=== PATIENT | female | born 1990 | race Caucasian/White ===

== ENCOUNTER 2020-06-10 22:02 | Inpatient (IN) | payer OTHER, MEDICAID, SELFPAY ==
[~2020-06-10] VITALS: Ht 154.9 cm; Wt 73.0 kg
[~2020-06-10 22:02] MED LIST: ORE25 PO
[2020-06-10 22:08] VITALS: BP 105/71
--- NOTE | 2020-06-10 22:10 | NUR ---
PT AMBULATED TO RESTROOM WITH STEADY GAIT TO PROVIDE UA.
--- NOTE | 2020-06-10 22:13 | NUR ---
PT AMBUALTED TO BED 6 WITH STEADY GAIT.
--- NOTE | 2020-06-10 22:19 | NUR ---
PATIENT PRESENTS TO ED WITH C/O GENERAL WEAKNESS X 4 DAYS . PT STATES [place] [facility] [place] 7.2 AND RECEIVED TRANSFUSION. CONTINUES WITH C/O GW DENIES N/V/D; SKIN IS PINK/WARM/DRY; AAOX4 WITH EVEN AND STEADY GAIT; LUNGS CLEAR BL; HR EVEN AND REGULAR; PT DENIES ANY FEVER, CP, SOB, OR COUGH AT THIS TIME; PATIENT STATES PAIN OF 0/10 AT THIS TIME; VSS; PATIENT POSITIONED FOR COMFORT; HOB ELEVATED; BEDRAILS UP X2; BED DOWN. ER MD MADE AWARE OF PT STATUS.
--- NOTE | 2020-06-10 22:19 | NUR ---
DR. JENKINS AT BEDSIDE FOR EXAM. PT UNABLE TO PROVIDE UA AT THIS TIME
--- NOTE | 2020-06-10 22:20 | NUR ---
ERMD AT BEDSIDE EVALUATING PT.
[2020-06-10] MEDS ORDERED: NACL 0.9% 1,000 ML IV ONE (22:30)
--- NOTE | 2020-06-10 22:36 | NUR ---
XRAY AT BEDSIDE
[2020-06-10 22:56] LABS: BASOPHILS # (AUTO) 0.1 K/uL (0.00-0.22); BASOPHILS % (AUTO) 0.9 % (0.0-2.0); EOSINOPHILS # (AUTO) 0.2 K/uL (0-0.4); EOSINOPHILS % (AUTO) 1.4 % (0.0-4.0); HEMATOCRIT 23.3 % (36-48); HEMOGLOBIN 7.8 g/dL (12.0-16.0); LYMPHOCYTES # (AUTO) 1.4 K/uL (2.5-16.5); MEAN CORPUSCULAR HEMOGLOBIN 32 pg (27-31); MEAN CORPUSCULAR HGB CONC 33 g/dL (33-37); MEAN CORPUSCULAR VOLUME 94.9 fL (80-94); MONOCYTES # (AUTO) 0.6 K/uL (0.8-1.0); MONOCYTES % (AUTO) 4.9 % (1.7-9.3); NEUTROPHILS # (AUTO) 9.6 K/uL (1.8-7.7); NEUTROPHILS % (AUTO) 80.8 % (42.2-75.2); PLATELET COUNT (AUTO) 339 K/uL (140-450); RED BLOOD CELL COUNT(AUTO) 2.46 MIL/uL (4.20-5.40); RED CELL DISTRIBUTION WIDTH 15.1 % (11.6-13.7); WHITE BLOOD COUNT (AUTO) 11.9 K/uL (4.8-10.8)
[2020-06-10 23:12] LABS: ALBUMIN 3.7 g/dL (3.4-5.0); ANION GAP 17.7 (8-16); TOTAL BILIRUBIN 0.4 mg/dL (0.0-1.0)
[2020-06-10 23:30] LABS: CREATININE 23.8 mg/dL (0.6-1.3); PROTHROMBIN TIME 9.9 secs (10.8-13.4)
--- NOTE | 2020-06-10 23:30 | NUR ---
PT REFUSES NASAL SWABS FOR COVID AND MRSA, REQUESTING TO LEAVE AMA
[2020-06-10 23:31] LABS: POTASSIUM 5.7 mmol/L (3.5-5.1)
--- NOTE | 2020-06-10 23:40 | NUR ---
DR. JENKINS AT BEDSIDE TO DISCUSS PTS REFUSAL. PT AGREES NOW TO COVID SWAB, REFUSES MRSA SWAB
[2020-06-11] MEDS ORDERED: LOSA25TA1 PO (00:50)
[2020-06-11] MEDS ORDERED: K PH1TAB PO (00:50)
[2020-06-11] MEDS ORDERED: MEDR2.5T PO (00:50)
[2020-06-11] MEDS ORDERED: CALC0.5S6 PO (00:50)
[2020-06-11] MEDS ORDERED: FERR1TAB42 PO (00:50)
[2020-06-11] MEDS ORDERED: SEN30 PO (00:50)
[2020-06-11] MEDS ORDERED: AMLO10TA89 PO (00:50)
--- NOTE | 2020-06-11 01:50 | NUR ---
ADMIT ORDERS REC'D FROM DR. MURCIA
--- NOTE | 2020-06-11 03:29 | NUR ---
RESTING COMFORTABLY WITH EYES OPEN IN NAD. PT IS TO BE ADMITTED. CM = SR WITHOUT ECTOPY. DENIES PAIN OR DISCOMFORT
--- NOTE | 2020-06-11 03:37 | NUR ---
REPORT TO KIM CASON
--- NOTE | 2020-06-11 03:40 | NUR ---
TRANSFERED TO [facility]A VIA JOSHUA, ACCOMPANIED BY RN AND ERT, ATTACHED TO CM
[2020-06-11 04:11] VITALS: BP 123/88
--- NOTE | 2020-06-11 04:11 | NUR ---
RECEIVED PT AAOX4 FROM JENNY Cuevas/ JOSHUA . IV SITE INTACT AND PATENT - SL . AMBULATES TO BED - STEADY GAIT . ADMISSION ASSESSMENT - DONE . ON TELE MONITOR - SR . DENIES ANY PAIN . PT . W/ PERITONEAL DIALYSIS - SHE SAID SHE DOIND PERITONEAL DIALYSIS AT HOME ON DAILY BASIS . PLAN OF CARE DISCUSSED AND VERBALIZE UNDERSTANDING . SAFETY MEASURES IN PLACE - GERALD;L LIGHT WITHIN REACH . FOR URINE COLLECTION . PT SAID SHE STILL MAKE HER OWN URINE . WILL CONT. TO MONITOR Addendum: 06/11/20 at 2041 by Deysi Messer RN THE WORD PT. W/ PERITONEAL DIALYSIS IN ABOVE NURSE'S NOTE IS AN ERROR ENTRY , INSTEAD OF PT HAS PERITONEAL DIALYSIS ACCESS - SANTO
--- NOTE | 2020-06-11 04:37 | NUR ---
REFUSED MRSA - I EXPLAIN TO HER THE MRSA IS DIFFERENT TO COVID RAPID TEST WHICH DONE WHILE AGO IN THE ER - BUT THE PT. STILL REFUSED . SHE SAID LONG HER COVID TEST IS NEGATIVE - SHE DON'T LIKE ANY PROCEDURE NASALLY .
--- NOTE | 2020-06-11 06:00 | NUR ---
UPDATING DR Bhumika MURCIA PT 'S HAS HIGH SERUM K = , AND THE PT HAS BLOOD ANTIBODIES FOUND - FOR FURTHER ANTIBODIES SCREENING . Addendum: 06/11/20 at 0853 by Deysi Messer RN DR. HUANG BACK - NO FURTHER ORDERS MADE .
--- NOTE | 2020-06-11 07:30 | NUR ---
RECEIVED PT FROM AMUSEMENT PARK ENTERTAINER NURSE, PT IS RESTING IN BED, IV NOTED TO LAC 18G SALINE LOCK, ON ROOM AIR, CONTINENT, TELE MONITOR ON, SAFETY AND FALL PRECAUTIONS IN PLACE, WILL CONTINUE TO MONITOR.
--- NOTE | 2020-06-11 07:43 | NUR ---
ENDORSED TO AM SHIFT - PT - STABLE .
--- NOTE | 2020-06-11 07:43 | NUR ---
PATIENT HAS BEEN SCREENED AND CATEGORIZED MODERATE NUTRITION RISK. PATIENT WILL BE SEEN WITHIN 3-5 DAYS OF ADMISSION. 06/13/20 06/15/[address]
[2020-06-11] MEDS ORDERED: DOCUSATE SODIUM 100 MG GELCAP PO PRN (07:55)
[2020-06-11] MEDS ORDERED: ONDANSETRON 4 MG/2 ML VIAL IM/IVP PRN (07:55)
[2020-06-11] MEDS ORDERED: ZOLPIDEM 5 MG TAB PO PRN (07:55)
[2020-06-11] MEDS ORDERED: guaiFENesin DM 200/20 MG-10 ML 10 ML UDC PO PRN (07:55)
[2020-06-11] MEDS ORDERED: POTASSIUM CHLORIDE 10 MEQ TABER PO PRN (07:55)
[2020-06-11] MEDS ORDERED: HYDROcodone/APAP 7.5/325 MG 1 TAB PO PRN (07:55)
[2020-06-11] MEDS ORDERED: ACETAMINOPHEN 325 MG TAB PO PRN (07:55)
[2020-06-11 08:00] VITALS: BP 117/71
--- NOTE | 2020-06-11 08:40 | NUR ---
DR. MURCIA CAME TO PT'S ROOM AND SPOKE TO PT REGARDING THE POC AND PT VERBALIZED UNDERSTANDING.
[2020-06-11] MEDS ORDERED: FUROSEMIDE 100 MG/10 ML VIAL IVP SCH (09:15)
[2020-06-11] MEDS ORDERED: SODIUM ZIRCONIUM CYCLOSILICATE 10 GM POWD.PACK PO SCH (09:15)
[2020-06-11 09:34] LABS: APPEARANCE,URINE HAZY (CLEAR); BILIRUBIN,URINE NEGATIVE (NEGATIVE); BLOOD, URINE 3+ (NEGATIVE); COLOR,URINE YELLOW (YELLOW); LEUKOCYTE ESTERASE ,URINE 2+ (NEGATIVE); NITRITE, URINE NEGATIVE (NEGATIVE); UGLUCOSE TRACE (NEGATIVE)
[2020-06-11] MEDS: amLODIPine 5 MG TAB PO SCH (09:53)
[2020-06-11] MEDS: PANTOPRAZOLE 40 MG TABEC PO SCH (09:54)
--- NOTE | 2020-06-11 09:55 | NUR ---
SCHEDULED MEDICATIONS ADMINISTERED PER PROTOCOL, BP117/77, HR 98, RR 14, O2 100%, PT DENIES PAIN, PT TOLERATED MEDICATION WELL, EDUCATION PROVIDED, PT VERBALIZED UNDERSTANDING, WILL CONTINUE TO MONITOR.
[2020-06-11 10:06] LABS: BARBITURATE, URINE NEGATIVE ng/ml (NEG <=200); BENZODIAZEPINE, URINE NEGATIVE ng/mL (NEG <=200); CANNABINOID, URINE NEGATIVE ng/mL (NEG <=50); COCAINE, URINE NEGATIVE ng/mL (NEG <=300); OPIATE, URINE NEGATIVE ng/mL (NEG <=2000); PHENCYCLIDINE SCREEN,URINE NEGATIVE ng/mL (NEG <=25)
[2020-06-11 10:28] LABS: CHOL/HDL RATIO 3.8 (1-4.5); FREE T4 (FREE THYROXINE) 0.89 ng/dL (0.76-1.46); MAGNESIUM 3.2 mg/dL (1.8-2.4); THYROID STIMULATING HORMONE 3.75 uIU/mL (0.34-3.74)
[2020-06-11 10:57] LABS: PHOSPHORUS 9.4 mg/dL (2.5-4.9)
--- NOTE | 2020-06-11 11:02 | NUR ---
LAB CALLED TO NOTIFY OF 9.7 PROSPEROUS LAB VALUE, DR. MURCIA WAS NOTIFIED, WILL CONTINUE TO MONITOR
[2020-06-11] MEDS ORDERED: EPOETIN ALFA 10,000 UNITS/ML VIAL SUBQ SCH (11:18)
[2020-06-11] MEDS: SEVELAMER CARBONATE 800 MG TAB PO SCH ×2 (11:56→18:16)
--- NOTE | 2020-06-11 11:57 | NUR ---
PT WAS GIVEN THE SCHEDULED MEDICATIONS VIA SUBQ ON THE RT UA, AND ORALLY, PT TOLERATED AND WILL MONITOR PT.
--- NOTE | 2020-06-11 13:20 | NUR ---
RECEIVED REPORT FROM MOHAN FOR CONTINUITY OF CARE, PT IS STABLE, INTRODUCE SELF, WILL CONTINUE TO MONITOR.
--- NOTE | 2020-06-11 13:20 | NUR ---
ENDORSED PT TO RN DE, FOR CONTINUITY OF CARE, PT IS AWAKE AND STABLE AT THIS TIME.
--- NOTE | 2020-06-11 15:00 | NUR ---
PT ASLEEP IN BED, NO SIGNS OF DISTRESS NOTED, CALL LIGHT WITHIN REACH, WILL CONTINUE TO MONITOR.
[2020-06-11 16:00] VITALS: BP 110/59
--- NOTE | 2020-06-11 17:58 | NUR ---
CALLED LAB REGARDING PT BLOOD TRANSFUSION, BLOOD NOT READY LAB IS AWAITING THE RED CROSS TO SEND THE BLOOD BACK THE PT IS POSITIVE FOR ANTIBODIES. WILL ENDORSE TO NIGHT NURSE
--- NOTE | 2020-06-11 18:16 | NUR ---
ADMINISTERED SCHEDULED MEDICATION, MEDICATION EDUCATION PROVIDED, PT VERBALIZED UNDERSTANDING, PT TOLERATED WELL, PT IS STABLE, NO SIGNS OF DISTRESS NOTED, WILL CONTINUE TO MONITOR.
--- NOTE | 2020-06-11 19:10 | NUR ---
ENDORSE PT TO NIGHT NURSE FOR CONTINUITY OF CARE, PT IS STABLE
--- NOTE | 2020-06-11 19:50 | NUR ---
DIALYSIS NURSE CARY RN AT BEDSIDE.
[2020-06-11 20:00] VITALS: BP 112/64
--- NOTE | 2020-06-11 20:00 | NUR ---
RECEIVED REPORT FROM DAY SHIFT RN. A&O X4. SR/ST. S1S2 NOTED. PT HAS PERIPHERAL IV TO LT AC 18g PATENT NO INFILTRATION/PHLEBITIS NOTED, SALINE LOCK. LUNGS CLEAR UPON AUSCULTATION. BS ACTIVE IN ALL 4 QUADRANTS. PERITONEAL ACCESS SITE TO LEFT LOWER QUADRANT, NO REDNESS OR EDEMA NOTED. SKIN WARM, DRY AND INTACT. SAFETY MEASURES IN PLACE, BED LOW AND LOCKED, SIDE RAILS UP, CALL LIGHT WITHIN REACH. WILL CONTINUE TO MONITOR.
--- NOTE | 2020-06-11 22:00 | NUR ---
NO S/S OF DISTRESS NOTED, PT IS RESTING IN BED, WILL CONTINUE TO MONITOR. CALL LIGHT IS WITHIN REACH. SAFETY MEASURES IN PLACE.
--- NOTE | 2020-06-12 | NUR ---
PT IS SLEEPING, PT IS STABLE WITH NO APPARENT DISTRESS NOTED. WILL CONTINUE TO MONITOR.
--- NOTE | 2020-06-12 02:00 | NUR ---
PT IS RESTING IN BED, PT STATES NO PAIN OR DISCOMFORT AT THIS TIME, WILL CONTINUE TO MONITOR.
[2020-06-12 04:00] VITALS: BP 126/79
--- NOTE | 2020-06-12 04:00 | NUR ---
PT IS SLEEPING, NO S/S OF DISTRESS NOTED. WILL CONTINUE TO MONITOR. CALL LIGHT IS WITHIN REACH. SAFETY MEASURES IN PLACE.
--- NOTE | 2020-06-12 06:00 | NUR ---
PT IS SLEEPING, PT IS STABLE WITH NO APPARENT S/S OF DISTRESS NOTED. SAFETY MEASURES IN PLACE, BED LOW AND LOCKED, HOB AT 30 DEGREES, CALL LIGHT WITHIN REACH. WILL CONTINUE TO MONITOR
[2020-06-12 06:36] LABS: BASOPHILS # (AUTO) 0.1 K/uL (0.00-0.22); BASOPHILS % (AUTO) 1.2 % (0.0-2.0); EOSINOPHILS # (AUTO) 0.3 K/uL (0-0.4); EOSINOPHILS % (AUTO) 2.9 % (0.0-4.0); HEMATOCRIT 22.9 % (36-48); HEMOGLOBIN 7.5 g/dL (12.0-16.0); LYMPHOCYTES # (AUTO) 1.8 K/uL (2.5-16.5); LYMPHOCYTES % (AUTO) 19.4 % (20.5-51.1); MEAN CORPUSCULAR HEMOGLOBIN 31 pg (27-31); MEAN CORPUSCULAR HGB CONC 33 g/dL (33-37); MEAN CORPUSCULAR VOLUME 95.7 fL (80-94); MONOCYTES # (AUTO) 0.5 K/uL (0.8-1.0); MONOCYTES % (AUTO) 5.7 % (1.7-9.3); NEUTROPHILS # (AUTO) 6.4 K/uL (1.8-7.7); NEUTROPHILS % (AUTO) 70.8 % (42.2-75.2); PLATELET COUNT (AUTO) 315 K/uL (140-450); RED BLOOD CELL COUNT(AUTO) 2.39 MIL/uL (4.20-5.40); RED CELL DISTRIBUTION WIDTH 15.1 % (11.6-13.7); WHITE BLOOD COUNT (AUTO) 9.1 K/uL (4.8-10.8)
[2020-06-12 06:51] LABS: ANION GAP 20.9 (8-16); POTASSIUM 4.9 mmol/L (3.5-5.1)
[2020-06-12 06:54] LABS: CREATININE 24.2 mg/dL (0.6-1.3)
--- NOTE | 2020-06-12 07:10 | NUR ---
RECEIVED REPORT FROM CUSTOMER SUPPORT ASSOCIATE RN FOR CONTINUITY OF CARE. A&O X4. PT HAS PERIPHERAL IV TO LT AC 18g PATENT NO INFILTRATION/PHLEBITIS NOTED, SALINE LOCK. LUNGS CLEAR UPON AUSCULTATION. BS ACTIVE IN ALL 4 QUADRANTS. PERITONEAL ACCESS SITE TO LEFT LOWER QUADRANT, NO REDNESS OR EDEMA NOTED. SKIN WARM, DRY AND INTACT. SAFETY MEASURES IN PLACE, BED LOW POSITION, SIDE RAILS UP, CALL LIGHT WITHIN REACH. WILL CONTINUE TO MONITOR.
[2020-06-12] MEDS: PANTOPRAZOLE 40 MG TABEC PO SCH (08:09)
[2020-06-12] MEDS: SEVELAMER CARBONATE 800 MG TAB PO SCH ×3 (08:09→17:05)
[2020-06-12] MEDS: amLODIPine 5 MG TAB PO SCH (08:09)
--- NOTE | 2020-06-12 08:10 | NUR ---
SCHEDULED MORNING MEDICATION GIVEN, EDUCATION PROVIDED. PATIENT TOLERATED WELL AND VERBALIZED UNDERSTANDING. NO ACUTE DISTRESS NOTED. SAFETY MEASURES IN PLACE, CALL LIGHT WITHIN REACH. WILL CONTINUE TO MONITOR.
--- NOTE | 2020-06-12 11:21 | NUR ---
RBC PICKED UP FROM THE BLOOD BANK.
--- NOTE | 2020-06-12 11:32 | NUR ---
STARTED BLOOD TRANSFUSION. EDUCATION PROVIDED. INSTRUCTED PATIENT TO INFORM NURSE IF HAVE ANY ABNORMAL FINDINGS. WILL CLOSELY TO MONITOR.
--- NOTE | 2020-06-12 11:45 | NUR ---
PATIENT TALKING TO HER FAMILY OVER THE PHONE, NO REACTION NOTED SO FAR. WILL CLOSELY TO MONITOR.
--- NOTE | 2020-06-12 12:13 | NUR ---
SCHEDULED MEDICATION GIVEN. EDUCATION PROVIDED. NO REACTION TO BLOOD TRANSFUSION. PATIENT TOLERATED WELL. SAFETY MEASURES IN PLACE, WILL CONTINUE TO CLOSELY TO MONITOR.
--- NOTE | 2020-06-12 14:05 | NUR ---
FINISHED BLOOD TRANSFUSION. NO REACTION NOTED. V/S CHECKED. PATIENT DENIES DISCOMFORT. WILL CONTINUE TO MONITOR.
[2020-06-12 16:00] VITALS: BP 12/70
--- NOTE | 2020-06-12 17:05 | NUR ---
SCHEDULED MEDICATION GIVEN. PATIENT DENIES PAIN OR DISCOMFORT. TALKING WITH FRIEND OVER THE PHONE. SAFETY MEASURES IN PLACE, WILL CONTINUE TO MONITOR.
--- NOTE | 2020-06-12 18:35 | NUR ---
PATIENT DENIES PAIN OR DISCOMFORT, SAFETY MEASURES IN PLACE. WILL CONTINUE TO MONITOR.
--- NOTE | 2020-06-12 19:25 | NUR ---
RECEIVED REPORT FROM DAYSHIFT NURSE AT PATIENTS BEDSIDE. PT AWAKE AND ALERT, LYING DOWN IN BED. ON ROOM AIR, DENIES PAIN/WEAKNESS/DIZZINESS AT THIS TIME. REPORTS HAVING SOME SPOTTING, MENSTRUAL CYCLE IS VERY LIGHT. RIGHT ABDOMINAL LOWER QUADRANT HAS PERITONEAL DIALYSIS ACCESS, DRESSING DRY AND INTACT. LAC AC 18G, FLUSHED AND PATENT, SALINE LOCKED. PT ORIENTED TO TREATMENT PLAN, ALL QUESTIONS ANSWERED, PT AMBULATES TO RESTROOM FREQUENTLY. BED LOCKED AND IN LOWEST POSITION, SIDE RAILS UP x2, CALL LIGHT WITHIN REACH.
--- NOTE | 2020-06-12 19:32 | NUR ---
ENDORSED PATIENT TO PRINTING AND STAMPING SUPERVISOR RN EZEQUIEL FOR CONTINUITY OF CARE. PATIENT IN STABLE CONDITION.
--- NOTE | 2020-06-12 20:10 | NUR ---
PT STARTED ON PERITONEAL DIALYSIS. NO COMPLAINTS AT THIS TIME.
[2020-06-12 21:40] LABS: BASOPHILS # (AUTO) 0.1 K/uL (0.00-0.22); BASOPHILS % (AUTO) 0.7 % (0.0-2.0); EOSINOPHILS # (AUTO) 0.2 K/uL (0-0.4); EOSINOPHILS % (AUTO) 1.8 % (0.0-4.0); HEMATOCRIT 25.7 % (36-48); HEMOGLOBIN 8.6 g/dL (12.0-16.0); LYMPHOCYTES # (AUTO) 1.6 K/uL (2.5-16.5); LYMPHOCYTES % (AUTO) 14.4 % (20.5-51.1); MEAN CORPUSCULAR HEMOGLOBIN 31 pg (27-31); MEAN CORPUSCULAR HGB CONC 33 g/dL (33-37); MEAN CORPUSCULAR VOLUME 93.8 fL (80-94); MONOCYTES # (AUTO) 0.5 K/uL (0.8-1.0); MONOCYTES % (AUTO) 4.2 % (1.7-9.3); NEUTROPHILS # (AUTO) 8.9 K/uL (1.8-7.7); NEUTROPHILS % (AUTO) 78.9 % (42.2-75.2); PLATELET COUNT (AUTO) 301 K/uL (140-450); RED BLOOD CELL COUNT(AUTO) 2.74 MIL/uL (4.20-5.40); RED CELL DISTRIBUTION WIDTH 14.9 % (11.6-13.7); WHITE BLOOD COUNT (AUTO) 11.3 K/uL (4.8-10.8)
--- NOTE | 2020-06-12 22:20 | NUR ---
PT ABLE TO SELF TURN. NO DISTRESS NOTED. SAFETY MEASURES IN PLACE.
[2020-06-13] VITALS: BP 113/70
--- NOTE | 2020-06-13 00:24 | NUR ---
PT SLEEPING COMFORTABLY, VISIBLE CHEST RISE AND FALL. BED LOCKED AND IN LOWEST POSITION. IV INTACT. ON ROOM AIR. IN STABLE CONDITION. WILL CONTINUE TO MONITOR.
--- NOTE | 2020-06-13 02:23 | NUR ---
PT UP AND OUT OF BED TO AMBULATE TO RESTROOM, REPORTS VOIDING, MINIMAL BLEEDING. BACK TO BED WITHOUT INCIDENT.
--- NOTE | 2020-06-13 04:11 | NUR ---
CHEST RISE AND FALL, NO DISTRESS NOTED. FLACC 0. SAFETY MEASURES IN PLACE, PT SELF TURNS. WILL CONTINUE TO MONITOR.
--- NOTE | 2020-06-13 06:00 | NUR ---
PT ALERT TO VOICE, REPORTS SLEPT WELL. DENIES WEAKNESS/ DIZZINESS. CLAMPED TUBING AT ACCESS SITE. IV INTACT, SALINE LOCKED. ALL NEEDS MET AT THIS TIME. PT WILL HAVE SPONGE BATH LATER, INDEPENDENT OF ADL's.
[2020-06-13 08:00] VITALS: BP 122/71
[2020-06-13 08:20] LABS: MAGNESIUM 3.3 mg/dL (1.8-2.4); PHOSPHORUS 8.5 mg/dL (2.5-4.9)
[2020-06-13 08:21] LABS: ALBUMIN 3.4 g/dL (3.4-5.0); ANION GAP 20.3 (8-16); CARBON DIOXIDE 26.5 mmol/L (21-32); PHOSPHORUS 8.6 mg/dL (2.5-4.9); POTASSIUM 4.8 mmol/L (3.5-5.1); TOTAL BILIRUBIN 0.4 mg/dL (0.0-1.0)
[2020-06-13] MEDS: SEVELAMER CARBONATE 800 MG TAB PO SCH ×2 (08:43→11:49)
[2020-06-13] MEDS: PANTOPRAZOLE 40 MG TABEC PO SCH (08:43)
[2020-06-13] MEDS: amLODIPine 5 MG TAB PO SCH (08:43)
--- NOTE | 2020-06-13 08:43 | NUR ---
SCHEDULED MORNING MEDICATION GIVEN, EDUCATION PROVIDED. PATIENT DENIES PAIN OR DISCOMFORT AT THIS TIME. UPDATED HER HGB LEVEL 8.6 TODAY S/P 1 UNIT OF BLOOD TRANSFUSION YESTERDAY. SAFETY MEASURES IN PLACE, CALL LIGHT WITHIN REACH. WILL CONTINUE TO MONITOR.
--- NOTE | 2020-06-13 11:49 | NUR ---
SCHEDULED MEDICATION GIVEN. EDUCATION PROVIDED, PATIENT TOLERATED WELL. NO ACUTE DISTRESS NOTED AT THIS TIME. SAFETY MEASURES IN PLACE, CALL LIGHT WITHIN REACH. WILL CONTINUE TO MONITOR.
--- NOTE | 2020-06-13 13:08 | NUR ---
PATIENT AWAKE, DENIES PAIN OR DISCOMFORT. SAFETY MEASURES IN PLACE, WILL CONTINUE TO MONITOR.
[2020-06-13 13:29] LABS: BASOPHILS # (AUTO) 0.1 K/uL (0.00-0.22); BASOPHILS % (AUTO) 0.9 % (0.0-2.0); EOSINOPHILS # (AUTO) 0.2 K/uL (0-0.4); EOSINOPHILS % (AUTO) 2.6 % (0.0-4.0); HEMOGLOBIN 8.2 g/dL (12.0-16.0); LYMPHOCYTES # (AUTO) 1.3 K/uL (2.5-16.5); LYMPHOCYTES % (AUTO) 14.5 % (20.5-51.1); MEAN CORPUSCULAR HEMOGLOBIN 32 pg (27-31); MEAN CORPUSCULAR HGB CONC 34 g/dL (33-37); MEAN CORPUSCULAR VOLUME 94.1 fL (80-94); MONOCYTES # (AUTO) 0.5 K/uL (0.8-1.0); MONOCYTES % (AUTO) 6.1 % (1.7-9.3); NEUTROPHILS # (AUTO) 6.7 K/uL (1.8-7.7); NEUTROPHILS % (AUTO) 75.9 % (42.2-75.2); PLATELET COUNT (AUTO) 282 K/uL (140-450); RED BLOOD CELL COUNT(AUTO) 2.56 MIL/uL (4.20-5.40); WHITE BLOOD COUNT (AUTO) 8.8 K/uL (4.8-10.8)
[2020-06-13 13:41] LABS: ANION GAP 21.1 (8-16); CARBON DIOXIDE 24.6 mmol/L (21-32); POTASSIUM 4.7 mmol/L (3.5-5.1)
[2020-06-13 14:05] LABS: CREATININE 20.1 mg/dL (0.6-1.3)
--- NOTE | 2020-06-13 15:05 | NUR ---
PATIENT RESTING IN BED, AWAKE. DENIES PAIN OR DISCOMFORT. SAFETY MEASURES IN PLACE, WILL CONTINUE TO MONITOR.
--- NOTE | 2020-06-13 16:35 | NUR ---
DISCHARGE INSTRUCTION PROVIDED. PATIENT VERBALIZED UNDERSTANDING AND WILL FOLLOW WITH MD APPOINTMENT. IV REMOVED. PATIENT TOLERATED WELL. DISCHARGE PROTOCOL FOLLOWED. FAMILY MEMBER ON THE WAY TO COME TO CLASSIFIER THE PATIENT. WILL FOLLOW UP.
--- NOTE | 2020-06-14 05:57 | NUR ---
late entry---- s/w primary nurse, end times as follow; NS end time: [id number]
== END 2020-06-13 17:15 | disposition home or self-care (01) | DRG 70 ==
LOC: MED 22:02 → MTU 06-11 01:59
PROVIDERS: ADMIT Family Medicine; ATTEND Family Medicine
PROC: 3E1M39Z Irrigation of Peritoneal Cavity using Dialysate, Percutaneous Approach (ICD-10-PCS; principal; 2020-06-12)
PROC: 30233N1 Transfusion of Nonautologous Red Blood Cells into Peripheral Vein, Percutaneous Approach (ICD-10-PCS; 2020-06-12)
DX: G93.41 Metabolic encephalopathy (principal); N17.0 Acute kidney failure with tubular necrosis; N18.6 End stage renal disease; I12.0 Hypertensive chronic kidney disease with stage 5 chronic kidney disease or end stage renal disease; E87.6 Hypokalemia; N92.0 Excessive and frequent menstruation with regular cycle; D63.8 Anemia in other chronic diseases classified elsewhere; Z20.828 Contact with and (suspected) exposure to other viral communicable diseases; D72.829 Elevated white blood cell count, unspecified; D50.0 Iron deficiency anemia secondary to blood loss (chronic); Z99.2 Dependence on renal dialysis; Z82.49 Family history of ischemic heart disease and other diseases of the circulatory system
CPT/HCPCS: 36415; 71045; 76856; 80048; 80053; 80305; 81001; 82150; 83036; 83690; 83735; 83880; 84100; 84436; 84439; 84443; 84479; 84484; 84702; 85025; 85610; 85730; 86870; 86886; 86900; 86901; 86920; 87086; 90935; 93005; 96360; 99285; J0885; J1940; P9016

== ENCOUNTER 2021-01-08 13:17 | Emergency (ER) | payer OTHER, MEDICAID, SELFPAY ==
[~2021-01-08] VITALS: Ht 157.5 cm; Wt 70.3 kg
[~2021-01-08 13:17] MED LIST changes: +AMLO10TA89 PO; +CALC0.5S6 PO; +FERR1TAB42 PO; +HYDR-4004 PO; +K PH1TAB PO; +LOSA25TA1 PO; +MEDR2.5T PO; -ORE25 PO; +SEN30 PO
[2021-01-08 13:29] VITALS: BP 85/57
--- NOTE | 2021-01-08 13:38 | NUR ---
Patient ambulated to bed 01 with steady/even gait.
--- NOTE | 2021-01-08 13:44 | NUR ---
PA Calvert at bedside evaluating patient.
--- NOTE | 2021-01-08 13:45 | NUR ---
30 y/o F BIB self from home with c/c cough. Patient A&OX4, ambulatory, reports intermittent cough x 2-3 months. Patient states non-productive cough; reports coughing and she heard a "pop" to her left lung. Patient reports low back pain that worsens with bending over; states 10/10, sharp/constant, non-radiating pain. Patient denies any N/V/D, abdominal pain, chest pain, SOB, fever/chills, headache, dizziness. data processing systems project planner in place. Patient denies any medications prior to arrival. HR 107, BP 96/55 patient states this is normal for her. Lung sounds CTA. Last BM: today/normal; LMP: "last month." Bed locked in lowest position, side rails x 1, call light in reach. PMH: ESRD, peritoneal dialysis, HTN Meds: unable to obtain - see chart NKA Sx: Denies
[2021-01-08] MEDS ORDERED: HYDROcodone/APAP 5/325 MG 1 TAB TAB PO ONE (13:50)
--- NOTE | 2021-01-08 13:50 | NUR ---
Dr. Rodríguez is evaluating patient at bedside.
--- NOTE | 2021-01-08 13:56 | NUR ---
RAD at bedside.
--- NOTE | 2021-01-08 14:27 | NUR ---
Patient reports no relief after Trent 5/325. States pain remains 10/10; denies any nausea. Patient states she normally does not take pain medication, so unsure of what meds work for her in the past.
--- NOTE | 2021-01-08 14:27 | NUR ---
Patient sitting upright in high-fowlers in position of comfort. conveyor monitor remains in place. RR even/unlabored. Bed locked in lowest position, side rails x 1, call light in reach.
--- NOTE | 2021-01-08 14:50 | NUR ---
CHERI Calvert and Dr. Rodríguez made aware of patients blood pressure 69/38. Orders placed. CHREI Calvert is evaluating patient at bedside.
[2021-01-08] MEDS ORDERED: ACET-8386 PO (14:51)
[2021-01-08] MEDS ORDERED: NACL 0.9% 500 ML IV ONE (15:05)
--- NOTE | 2021-01-08 15:13 | NUR ---
Blood sample walked to lab, handed to CPT. Jefe
[2021-01-08 15:20] LABS: BASOPHILS # (AUTO) 0.1 K/uL (0.00-0.22); BASOPHILS % (AUTO) 0.5 % (0.0-2.0); EOSINOPHILS # (AUTO) 0.1 K/uL (0-0.4); EOSINOPHILS % (AUTO) 0.7 % (0.0-4.0); HEMATOCRIT 39.3 % (36-48); HEMOGLOBIN 13.1 g/dL (12.0-16.0); LYMPHOCYTES # (AUTO) 1.2 K/uL (2.5-16.5); LYMPHOCYTES % (AUTO) 5.8 % (20.5-51.1); MEAN CORPUSCULAR HEMOGLOBIN 32 pg (27-31); MEAN CORPUSCULAR HGB CONC 33 g/dL (33-37); MEAN CORPUSCULAR VOLUME 96.8 fL (80-94); MONOCYTES # (AUTO) 0.9 K/uL (0.8-1.0); MONOCYTES % (AUTO) 4.6 % (1.7-9.3); NEUTROPHILS # (AUTO) 17.8 K/uL (1.8-7.7); NEUTROPHILS % (AUTO) 88.4 % (42.2-75.2); PLATELET COUNT (AUTO) 364 K/uL (140-450); RED BLOOD CELL COUNT(AUTO) 4.06 MIL/uL (4.20-5.40); RED CELL DISTRIBUTION WIDTH 14.7 % (11.6-13.7); WHITE BLOOD COUNT (AUTO) 20.2 K/uL (4.8-10.8)
--- NOTE | 2021-01-08 15:20 | NUR ---
[employer] RN student at bedside for EKG, accompanied by RN.
[2021-01-08 15:33] LABS: ANION GAP 26.8 (8-16); CARBON DIOXIDE 23.4 mmol/L (21-32); POTASSIUM 4.2 mmol/L (3.5-5.1)
[2021-01-08 15:36] LABS: CREATININE 19.4 mg/dL (0.6-1.3)
--- NOTE | 2021-01-08 16:06 | NUR ---
LAB AT BEDSIDE FOR BLOOD CULTURE DRAW
--- NOTE | 2021-01-08 17:02 | NUR ---
Peritoneal sample collected from dialysis port; contacted lab and washhouse worker. supervisor type disk quality control came by to collect specimen.
--- NOTE | 2021-01-08 17:02 | NUR ---
Additional 10mL removed for a total volume of 30mL of fluid per warehouse hand request.
--- NOTE | 2021-01-08 17:20 | NUR ---
Patient sitting upright in high-fowlers in position of comfort. yarding supervisor remains in place. RR even/unlabored. Bed locked in lowest position, side rails x 1, call light in reach.
[2021-01-08 17:40] LABS: APPEARANCE,SPUN,BODY FLUID CLEAR (CLEAR); APPEARANCE,UNSPUN,BODY FLUID CLEAR (CLEAR); COLOR,BODY FLUID COLORLESS (LT YELLOW); RBC, BODY FLUID 0 /cu. mm.; SPECIMENTYPE,BODY FLUID PERITONEAL; TOTAL VOLUME,BODY FLUID 30 mL; WBC, BODY FLUID 1 /cu. mm.
--- NOTE | 2021-01-08 18:16 | NUR ---
Patient sitting upright in high-fowlers in position of comfort. monitoring engineer remains in place. RR even/unlabored. Bed locked in lowest position, side rails x 1, call light in reach.
[2021-01-08 18:21] LABS: GLUCOSE,BODY FLUID 741 mg/dL
[2021-01-08] MEDS ORDERED: MIDO5TAB16 PO (18:23)
--- NOTE | 2021-01-08 18:25 | NUR ---
IV site flushed with good blood return. IV line patent, no swelling/coolness/pain noted.
[2021-01-08 18:32] VITALS: BP 100/50
--- NOTE | 2021-01-08 18:32 | NUR ---
Patient discharged with v/s stable. Written and verbal after care instructions given and explained. Patient alert, oriented and verbalized understanding of instructions. Ambulatory with steady gait. All questions addressed prior to discharge. ID band removed. Patient advised to follow up with PMD. Rx of Hydrocodone/Acetaminophen, Midodrine Hcl given. Patient educated on indication of medication including possible reaction and side effects. Opportunity to ask questions provided and answered.
== END 2021-01-08 18:32 | disposition home or self-care (01) ==
LOC: MED 13:17
DX: S39.012A Strain of muscle, fascia and tendon of lower back, initial encounter (principal); R05 Cough; I10 Essential (primary) hypertension; Z79.899 Other long term (current) drug therapy; X58.XXXA Exposure to other specified factors, initial encounter; Y93.89 Activity, other specified; Y92.89 Other specified places as the place of occurrence of the external cause; Y99.8 Other external cause status
CPT/HCPCS: 36415; 71045; 80048; 82945; 84157; 85025; 87040; 87070; 87075; 87205; 89051; 93005; 96360; 99284